=== PATIENT | male | born 1980 | race Caucasian/White ===

== ENCOUNTER 2021-03-29 17:15 | Emergency (ER) | payer BC, SELFPAY ==
[2021-03-29 17:16] VITALS: BP 116/75; PULSE 117; RESP 19; TEMP 35.8; O2SAT 96; BMI 39.9
--- NOTE | 2021-03-29 17:51 | RAD_ITS ---
STUDY: X-RAY - LEFT HAND REASON FOR EXAM: Male, 40 years old. injury to left first digit after cutting tip with bow while hunting. TECHNIQUE: 3 view(s) of the hand. COMPARISON: None. FINDINGS: Normal radiocarpal articulation. Normal distal radioulnar joint. Normal visualized carpal bones. Normal carpal articulations Normal carpometacarpal articulation of the thumb. Normal second through fifth carpometacarpal joints. Normal metacarpi. Normal metacarpophalangeal joint of the thumb. Normal interphalangeal joint of the thumb. Mildly comminuted fracture of the first distal phalanx. Normal metacarpophalangeal joints of the second through fifth fingers. Normal proximal and distal interphalangeal joints of the second through fifth fingers. Normal phalanges of the second through fifth fingers. Soft tissue swelling and injury of the first digit. RAD/Hand Min 3 Views IMPRESSION: First distal phalanx fracture with soft tissue swelling/laceration. Electronically Signed: Suresh Lyle MD ([place]) at 18:28 EST , Service support ,
[2021-03-29] MEDS: fentaNYL 100 MCG/2 ML Ampul IV (18:50)
[2021-03-29] MEDS: Diphth,Pertuss(Acell),Tet Vac 0.5 ML Vial IM (19:25)
[2021-03-29] MEDS: Lidocaine 1% (20 ml mdv) 20 ML Vial INFILT (19:26)
[2021-03-29 19:27] VITALS: RESP 18
--- NOTE | 2021-03-29 19:41 | ED.RN ---
Patient is aware we are waiting to hear back from hand specialist at [facility]
--- NOTE | 2021-03-29 20:00 | EDS_ITS ---
HPI History of Present Illness Chief Complaint: Upper Extremity Injury Informant: patient Narrative Narrative: 40-year-old male presenting with left thumb injury. Patient was hunting using a crossbow this evening when the string came back and hit his left thumb. Last tetanus is unknown. This occurred just prior to arrival. He denies other injuries. Tetanus Immunization: Unknown Prior similar symptoms: No Recent Illness/Hospitalization: No PFSH PFSH Medical History (Updated 03/29/21 @ 19:[address] Maureen Cowart MD) Diabetes Home Medications clindamycin HCl 300 mg PO 4X/DAY #80 capsule 03/29/21 [Rx Last Taken Unknown] oxycodone-acetaminophen 1 tab PO Q6H PRN PRN 3 Days #12 tablet 03/29/21 [Rx Last Taken Unknown] Allergy/AdvReac Type Severity Reaction Status Date / Time iodine Allergy Rash Verified 03/29/21 17:16 Penicillins Allergy Rash Verified 03/29/21 17:16 Social History Smoking Status: Current every day smoker tobacco type: cigarettes ROS ROS ED Constitutional Constitutional ED: Denies fever(s) Cardiovascular Cardiovascular: Denies chest pain Respiratory/Chest Respiratory/Chest: Denies dyspnea Musculoskeletal Musculoskeletal: Reports other Details: left thumb injury EXAM Physical Exam Const Vital Signs: 03/29/21 17:16 03/29/21 19:27 Temperature 96.5 F L Temperature Source Temporal Pulse Rate 117 H Respiratory Rate 19 H 18 Blood Pressure 116/75 Blood Pressure Mean 88 Pulse Ox 96 Oxygen Delivery Method Room Air Positive well nourished and well developed General Appearance ED: well developed HEENT Reports normocephalic and head/scalp atraumatic Eyes PERRL Neck supple General: Negative for tenderness Chest Wall inspection of chest normal Resp normal respiratory effort no CVA tenderness Extremity Extremity Narrative: 2 cm laceration to distal left thumb, palmar aspect distal left thumb wrapping around to the nail. Nail is split midway through the nail. Normal cap refill. Normal sensation. Neuro oriented x3 Sensorium / Orientation: alert Psych mental status grossly normal MDM MDM MDM Narrative Medical decision making narrative: Patient was given tetanus IM. He was given fentanyl IV. He was given clindamycin due to penicillin allergy. X-ray left hand read by myself and radiology shows first distal phalanx fracture with soft tissue swelling. Laceration was copiously irrigated. Anesthetized with digital block. Thumb laceration was repaired with 4, 4-0 simple sutures. The nail was irrigated. AlumniFoam splint was placed and wound was dressed. Discussed with Dr. Cedeno who will be out of town this week. Discussed with [facility] and patient will follow-up as an outpatient. He was given prescription for clindamycin and Percocet. Patient is agreeable with this plan. Advised return to ED for worsening complaints. Radiography Diagnostic Testing: Clinical Impression(s) from Imaging Studies Hand X-Ray 03/29/21 17:51 IMPRESSION: First distal phalanx fracture with soft tissue swelling/laceration. Electronically Signed: Suresh Lyle MD ([place]) at 18:28 EST , Service support , Discharge Plan Triage Chief Complaint: Upper Extremity Injury ED Provider: Maureen Cowart Dx/Rx/DC Orders Clinical Impression: Open fracture of tuft of distal phalanx of left thumb Instructions: ED Fracture, Thumb Prescriptions: New clindamycin HCl 150 mg capsule 300 mg PO 4X/DAY Qty: 80 RF: 0 oxycodone-acetaminophen 5-325 mg tablet 1 tab PO Q6H PRN PRN (Reason: Pain) 3 Days Qty: 12 RF: 0 Referrals: JAYLENE WALKER [Other] Activity Restrictions/Additional Instructions: Follow-up with [facility] hand, Disposition Disposition: Home, Self Care Discharge Date/Time: 03/29/21 20:14
[2021-03-29] MEDS: oxyCODONE 5 MG Tablet PO (20:04)
[2021-03-29 20:13] VITALS: RESP 17
== END 2021-03-29 20:14 | disposition home or self-care (01) ==
PROVIDERS: Emergency Provider Emergency Medicine
DX: S62.522A Displaced fracture of distal phalanx of left thumb, initial encounter for closed fracture (principal); F17.210 Nicotine dependence, cigarettes, uncomplicated; X58.XXXA Exposure to other specified factors, initial encounter
CPT/HCPCS: 12001; 11750; 73130; 90715; 96365; 96372; 96375; 99285; J7050; A4216